=== PATIENT | male | born 1960 | race Caucasian/White ===

== ENCOUNTER → 2017-12-27 06:53 | Outpatient (CLI) | payer OTHER, SELFPAY ==
--- NOTE | 2017-12-27 | DI.RAD.S_ITS ---
PROCEDURE: XR KUB INDICATIONS: KIDNEY STONES TECHNIQUE: One view of the abdomen acquired. COMPARISON: [facility], CT, IVP (ABD & PEL WWO CONTRAST), 04/10/2017, 13:57. Dictated by: Cinthia Rizzo M.D. on 12/27/2017 at 8:14 Approved by: Cinthia Rizzo M.D. on 12/27/2017 at 8:16
== END ==
PROVIDERS: PCP Family Medicine; Visit Provider Specialist
DX: N20.0 Calculus of kidney (principal)
CPT/HCPCS: 74018

== ENCOUNTER → 2018-10-24 12:40 | Outpatient (ROUT) | payer OTHER, SELFPAY | PROVIDERS: PCP Family Medicine; Visit Provider Family Medicine | DX: N39.0 Urinary tract infection, site not specified (principal) | CPT/HCPCS: 87077; 87086; 87186 ==

== ENCOUNTER → 2019-01-01 09:06 | Outpatient (CLI) | payer OTHER, SELFPAY ==
--- NOTE | 2019-01-01 | DI.RAD.S_ITS ---
PROCEDURE: XR KUB INDICATIONS: KIDNEY STONES TECHNIQUE: One view of the abdomen acquired. COMPARISON: [facility], , XR KUB, 12/27/2017, 6:45. FINDINGS: Surgical changes and devices: Numerous pelvic surgical clips. Bowel: Bowel gas pattern is normal. Soft tissues: No suspicious abdominal calcifications. Previously described punctate left upper quadrant calcification is less conspicuous Visualized solid organ contours appear normal in size. Chronic deformity of the right femoral head and neck, with decreased femoral head step-off. Bones: No suspicious bony lesions. IMPRESSION: No definite radiographically visible nephrolithiasis. If clinically warranted, further assessment with CT KUB could be considered. Dictated by: Eleazar Parker M.D. on 01/01/2019 at 12:41 Approved by: Eleazar Parker M.D. on 01/01/2019 at 12:43
[2019-01-01 11:48] LABS: Prostate Specific Antigen < 0.064 ng/mL (0.10-4.00)
== END ==
PROVIDERS: PCP Family Medicine; Visit Provider Specialist
DX: C61 Malignant neoplasm of prostate (principal); N20.0 Calculus of kidney
CPT/HCPCS: 36415; 74018; 84153

== ENCOUNTER → 2020-10-05 07:06 | Outpatient (CLI) | payer OTHER, SELFPAY ==
--- NOTE | 2020-10-05 07:08 | DI.RAD.S_ITS ---
PROCEDURE: XR KUB INDICATIONS: Kidney stones TECHNIQUE: One view of the abdomen acquired. COMPARISON: [facility], CT, IVP (ABD & PEL WWO CONTRAST), 04/10/2017, 13:57. [facility], CR, XR KUB, 12/27/2017, 6:45[facility], CR, XR KUB, 01/01/2019, 9:16. FINDINGS: There is a 2 cm ovoid density projecting over the right renal pelvis. Upper poles of both renal shadows are obscured by bowel gas. Underlying osseous structures are appropriately mineralized without fracture. Multiple surgical clips noted in the pelvis, stable from the prior. IMPRESSION: 1. Ovoid 2 cm density projecting over the right renal pelvis most likely represents fecal debris, although, a renal stone would be difficult to exclude. 2. Nonobstructive bowel gas pattern. 3. Surgical clips in the pelvis Dictated by: Vincent Andujar M.D. on 10/05/2020 at 11:51 Approved by: Vincent Andujar M.D. on 10/05/2020 at 12:19
[2020-10-05 08:55] LABS: Prostate Specific Antigen < 0.064 ng/mL (0.10-4.00)
== END ==
PROVIDERS: PCP Family Medicine; Referring Provider Specialist; Visit Provider Specialist
DX: N20.0 Calculus of kidney (principal); R97.20 Elevated prostate specific antigen [PSA]
CPT/HCPCS: 36415; 74018; 84153

== ENCOUNTER → 2021-10-05 06:52 | Outpatient (CLI) | payer OTHER, SELFPAY ==
--- NOTE | 2021-10-05 07:13 | DI.RAD.S_ITS ---
PROCEDURE: XR KUB INDICATIONS: possible kidney calculus TECHNIQUE: One view of the abdomen acquired. COMPARISON: [facility], CR, XR KUB, 01/01/2019, 9:16. [facility], CR, XR KUB, 12/27/2017, 6:45. CR, KUB XRAY (1 VIEW ABDOMEN), 08/02/2017, 6:43. [facility], CR, KUB XRAY (1 VIEW ABDOMEN), 05/03/2017, 7:55. [facility], CR, XR KUB, 10/05/2020, 7:10. FINDINGS: Surgical changes and devices: Multiple surgical clips in the lower pelvis are stable compared to prior exams.. Bowel: Bowel gas pattern is normal. Soft tissues: No suspicious abdominal calcifications. Visualized solid organ contours appear normal in size. Bones: No suspicious bony lesions. IMPRESSION: No renal stone identified by plain film radiograph. If there is continued clinical concern for nephrolithiasis, consider CT imaging for additional evaluation. Dictated by: Charis Quarles MD, PhD on 10/05/2021 at 9:39 Approved by: Charis Quarles MD, PhD on 10/05/2021 at 9:43
[2021-10-05 09:02] LABS: Prostate Specific Antigen < 0.064 ng/mL (0.10-4.00)
== END ==
PROVIDERS: PCP Family Medicine; Referring Provider Specialist; Visit Provider Specialist
DX: R97.20 Elevated prostate specific antigen [PSA] (principal); N20.0 Calculus of kidney
CPT/HCPCS: 36415; 74018; 84153

== ENCOUNTER → 2022-03-27 11:37 | Outpatient (CLI) | payer OTHER, SELFPAY ==
[2022-03-27 14:15] LABS: COVID19 -Nasal RAPID Negative (Negative)
== END ==
PROVIDERS: PCP Family Medicine; Visit Provider Surgery
DX: Z20.822 Contact with and (suspected) exposure to COVID-19 (principal); Z01.812 Encounter for preprocedural laboratory examination
CPT/HCPCS: 87635; C9803

== ENCOUNTER 2022-03-28 08:27 | Day surgery (SDC) | payer OTHER, SELFPAY ==
--- NOTE | 2022-03-28 | PATH_ITS ---
[facility] Accession Number: [id number] . 01 Material submitted: . PART A: colon - ASCENDING COLON POLYP PART B: colon - SPLENIC FLEXURE POLYP . 01 Diagnosis: A. Ascending Colon, Polyp, Biopsy: Tubular adenoma. . B. Splenic Flexure, Polyp, Biopsy: Colonic mucosa with no diagnostic abnormality, consistent with polypoid redundancy. Additional levels were examined. Negative for dysplasia and malignancy. MRV 04/02/2022 1526 Local . 01 Electronically signed: . Nanci Oreilly MD, Pathologist NPI- [id number] . 01 Gross description: . Part A: ASCENDING COLON POLYP: Received in formalin is 1 fragment(s) of meeks, soft tissue measuring 1.4 x 0.3 x 0.2 cm submitted entirely in 1 cassette(s) Part B: SPLENIC FLEXURE POLYP: Received in formalin is 1 fragment(s) of meeks, soft tissue measuring 0.5 x 0.5 x 0.1 cm submitted entirely in 1 cassette(s) /NOAH 04/01/2022 1858 Local . 01 Pathologist provided ICD-10: D12.2 . 01 CPT . 138474, [id number] Specimen Comment: A courtesy copy of this report has been sent to [phone] Performed at: 01 [facility] [address] [place] [address] [address], [place], [place] [id number] MD Fritz Trotter MD Phone: [phone]
[2022-03-28 09:40] VITALS: BP 137/71; PULSE 71; RESP 16; TEMP 36.6; O2SAT 99; BMI 27.5
[2022-03-28] MEDS: LACTATED RINGERS 1,000 ML 42 ML IV (09:54)
--- NOTE | 2022-03-28 10:27 | PM.HP.1 ---
History of Present Illness History of Present Illness Date Patient Seen: 03/28/22 Time Patient Seen: 10:27 Chief complaint: SDC Narrative: [place] is a 62-year-old man who is here for colonoscopy. He has had 2 colonoscopies in the past both of which had no polyps. He has no known family history of colon cancer. He was diagnosed with prostate cancer and underwent a radical prostatectomy several years ago. Patient History Medical History History of malignant neoplasm of prostate History of nephrolithiasis Family & Social History Tobacco & Substance use: Smoking Status Never smoker alcohol intake frequency a few times a week Substance Use Type does not use Meds Home Medications and Allergies Home Medications Medication Instructions Recorded Confirmed Type sodium sul 1.479 gram-potas ch See Rx Instructions PO PER PKG DIR 03/07/22 Rx 0.188 gram-magnes sul 0.225 gram #24 tabs tablet (Sutab) lisinopril 10 20 - 25 tab PO DAILY 03/28/22 03/28/22 History mg-hydrochlorothiazide 12.5 mg tablet Allergies Allergy/AdvReac Type Severity Reaction Status Date / Time From COMPAZINE Allergy Severe Muscle Pain Uncoded 03/28/22 09:36 Exam Vital Signs (past 8 hours): - 03/28/22 09:40 Temperature 97.9 F Pulse Rate 71 Respiratory Rate 16 Blood Pressure 137/71 Pulse Oximetry 99 Oxygen Delivery Method Room Air Oxygen Delivery Method Room Air Const General: healthy appearing Resp Effort & Inspection: normal respiratory effort Assessment & Plan Assessment and plan (1) Colon cancer screening: Status: Acute Plan 62-year-old man due for colon cancer screening. We we reviewed the risks and benefits of colonoscopy and he would like to proceed. Time Spent With Patient Critical Care time: I spent a total of [] minutes of critical care time on this patient's care today; this time is exclusive of procedural time.
[2022-03-28] MEDS: MIDAZOLAM 5 MG/5 ML VIAL IV (10:45)
[2022-03-28] MEDS: fentaNYL 100 MCG/2 ML INJ 150 MCG IV (11:00)
--- NOTE | 2022-03-28 11:07 | P.OP.COLON_ITS ---
Operative Date/Time/Diagnoses Date of procedure: 03/28/22 Time of procedure: 11:07 Pre-op diagnosis: Colon cancer screening Procedure & Clinicians Study performed: Colonoscopy Surgeon: Durga Babin Procedure Notes Procedure in detail: Surgeon: Durga Babin MD Procedure: The patient was brought to the endoscopy suite, placed in left late ral decubitus position. The patient was connected to monitoring devices. A time-out was performed. Sedation was administered. Once the patient was adequately sedated, a digital rectal exam was performed and was normal. The scope was then inserted and advanced to the cecum where the appendiceal orifice was identified and photographed. The scope was then slowly withdrawn over greater than 6 minutes. The mucosa was thoroughly inspected. There was a 5 mm polyp in the ascending colon removed with a cold snare. There was a 5 mm polyp in the splenic flexure removed with cold snare. The scope was retroflexed in the rectum. No other abnormalities were noted. The scope was straightened and removed. The patient was awakened and brought to recovery. Versed: 5 mg Fentanyl: 150 mcg EBL: 5 mL Findings: 5 mm polyps in the ascending and splenic flexure Scope withdrawal time: 13 Sedation minutes: 25 Post-procedure Recommendations: Will call with biopsy results Disposition: PACU
[2022-03-28 11:12] VITALS: BP 138/75; PULSE 71; RESP 11; TEMP 37.2; O2SAT 99
[2022-03-28 11:17] VITALS: BP 128/78; PULSE 71; RESP 15; O2SAT 100
[2022-03-28 11:22] VITALS: BP 132/75; PULSE 66; RESP 14; TEMP 36.9; O2SAT 99
[2022-03-28 11:46] VITALS: BP 125/71; PULSE 66; RESP 12; TEMP 36.8; O2SAT 99
== END 2022-03-28 11:27 | disposition home or self-care (01) ==
PROVIDERS: PCP Family Medicine; Referring Provider Surgery; Visit Provider Surgery
PROC: 0DJD8ZZ Inspection of Lower Intestinal Tract, Via Natural or Artificial Opening Endoscopic (ICD-10-PCS; CPT 45378; principal; 2022-03-28 10:00)
DX: Z12.11 Encounter for screening for malignant neoplasm of colon (principal); D12.2 Benign neoplasm of ascending colon
CPT/HCPCS: 45385; 99152; 99153; J2250; J3010

== ENCOUNTER → 2023-08-08 09:55 | Outpatient (CLI) | payer MEDICARE, SELFPAY ==
--- NOTE | 2023-08-08 09:59 | DI.RAD.S_ITS ---
PROCEDURE: XR ANKLE RT MIN 3V INDICATIONS: RIGHT ANKLE PAIN TECHNIQUE: 3 views of the ankle were acquired. COMPARISON: [facility], , ANKLE 3 VIEWS RIGHT, 11/15/2011, 7:05. FINDINGS: Bones: No fractures or dislocations. Ankle mortise is normally aligned. No suspicious bony lesions. Mild plantar and posterior calcaneal enthesophytes. Mild degenerative changes of the tibiotalar joint. Soft tissues: No tibiotalar joint effusion. Achilles tendon appears normal. Soft tissue swelling, most pronounced over the lateral malleolus. IMPRESSION: No acute osseous abnormality. If pain persists with conservative management, consider repeat x-ray in 10-14 days or cross-sectional imaging. Dictated by: Abel Barrera M.D. on 08/08/2023 at 10:37 Approved by: Abel Barrera M.D. on 08/08/2023 at 10:37
== END ==
PROVIDERS: PCP Family Medicine; Referring Provider Family Medicine; Visit Provider Family Medicine
DX: M25.571 Pain in right ankle and joints of right foot (principal); M79.89 Other specified soft tissue disorders
CPT/HCPCS: 73610

== ENCOUNTER → 2023-08-11 | Outpatient (CLI) | payer MEDICARE, SELFPAY ==
--- NOTE | 2023-08-11 07:15 | DI.MRI.S_ITS ---
PROCEDURE: MR ANKLE RT WO CON INDICATIONS: Pain in right ankle and joints of right foot TECHNIQUE: Noncontrast sagittal T1 spin echo and T2 fast spin echo with fat saturation, axial proton density fast spin echo and T2 fast spin echo with fat saturation, coronal T1 spin echo and T2 fast spin echo with fat saturation through the ankle/hindfoot. COMPARISON: [facility], CR, XR ANKLE RT MIN 3V, 08/08/2023, 9:58. FINDINGS: Image quality: Diagnostic Bones and Joints: Tibiotalar joint: [id number] joint effusion and degenerative changes. There are areas of subchondral edema. Postsurgical changes at the lateral malleolus. More focal edema is seen at the medial malleolus. Midfoot and hindfoot: No acute fracture. Mild scattered degenerative changes. There is a trace subtalar joint effusion Talar dome: Subchondral edema and focal cystic change at the medial talar dome. Medial Structures: Flexor tendons: Suspected partial tear moderate tendinopathy at the posterior tibialis insertion. Tenosynovitis also seen in the hallucis and digitorum tendons in the mid aspect and plantar aspect. Deltoid ligaments: Multifocal apoq-lp-xamglyxb signal abnormalities in the deep and superficial fibers Spring complex: Qroj-oc-wlgscvgd signal abnormality extends into the spring complex Sinus tarsi: Preserved fat signal. Lateral Structures: Ligaments: Suspected partial tear of the anterior talofibular ligament. There is also edema surrounding the posterior tibial fibular and calcaneal fibular ligament. Syndesmosis: Ill-defined signal, but without significant edema. Peroneus tendons: Mild tendinosis Anterior Structures: Extensor tendons: Intact. Plantar and Posterior Structures: Achilles: Intact. There is calcaneal enthesopathy. Plantar fascia: Plantar enthesopathy, without acute edema currently Muscles: No pathologic edema. Other soft tissues: Mild diffuse subcutaneous edema IMPRESSION: Suspected contusion or nondisplaced fracture related edema in the medial malleolus with partial tearing and sprain of the deltoid and spring ligament complex. Suspected tendinopathy and partial tear also seen at the posterior tibialis insertion. Tenosynovitis of the other flexor tendons. Partial tear of the anterior talofibular ligament and edema/brain of the other lateral ligaments. Postsurgical changes at the lateral malleolus. Ill-defined signal abnormality of the syndesmosis may be related to postsurgical changes and prior trauma with scarring. No significant acute edema on this study. Plvi-sd-mmyrblnd tibiotalar and mild scattered midfoot and hindfoot degenerative changes. Tibiotalar joint effusion is present. Focal cystic changes seen in the medial talar dome. Plantar calcaneal enthesopathy, without acute edema. Mild tendinosis of the peroneal tendons. Dictated by: Ck Cain M.D. on 08/11/2023 at 12:50 Approved by: Ck Cain M.D. on 08/11/2023 at 13:03
== END ==
LOC: MRI 07:14
PROVIDERS: PCP Family Medicine; Referring Provider Family Medicine; Visit Provider Family Medicine
DX: S93.491A Sprain of other ligament of right ankle, initial encounter (principal); M25.471 Effusion, right ankle; M25.571 Pain in right ankle and joints of right foot; M65.871 Other synovitis and tenosynovitis, right ankle and foot; M77.31 Calcaneal spur, right foot; R60.0 Localized edema; Z87.81 Personal history of (healed) traumatic fracture
CPT/HCPCS: 73721

== ENCOUNTER → 2024-07-14 06:46 | Outpatient (CLI) | payer MEDICARE, SELFPAY ==
--- NOTE | 2024-07-14 06:47 | DI.US.S_ITS ---
PROCEDURE: US ABDOMEN COMPLETE INDICATIONS: PRIMARY HTN/ELEVATED BILIRUBIN/AAA SCREENING TECHNIQUE: Real-time scanning was performed of the abdominal and retroperitoneal organs, with image documentation. COMPARISON: [facility], US, ABDOMEN COMPLETE, 01/19/2016, 11:02. FINDINGS: Liver: Measures 15 cm. Increased in echogenicity. Small hypoechoic cysts. Left liver measuring 1.4 cm. Right liver measuring 1.6 cm. Gallbladder: Nondilated. Mobile gallstone measuring 2 cm. Normal gallbladder wall thickness. No pericholecystic fluid. Negative sonographic Calderon's sign. Biliary ducts: Not well seen. Pancreas: Not well seen due to overlying bowel gas. Spleen: Spleen is normal in size and homogeneous in echotexture. Measures 10.1 cm. Kidneys: Kidneys are normal in size and echotexture. Right kidney measures 11.2 cm long; left kidney measures 12.2 cm long. No hydronephrosis or nephrolithiasis. No solid masses. Aorta: Visualized aorta is normal in caliber at less than 3 cm. Proximal aorta is not seen. Iliacs: Proximal common iliac arteries are normal in caliber at less than 2.5 cm. IVC: Not well seen. Miscellaneous: No free abdominal fluid. IMPRESSION: 1. Increased hepatic echogenicity most consistent with hepatic steatosis. Other forms of hepatocellular disease could have similar appearance. 2. No acute cholecystitis. Mobile gallstone measuring 2 cm. 3. Pancreas and bile ducts are not well seen. 4. No hydronephrosis. Dictated by: Adilson Ash M.D. on 07/15/2024 at 18:33 Approved by: Adilson Ash M.D. on 07/15/2024 at 18:39
== END ==
PROVIDERS: PCP Family Medicine; Referring Provider Family Medicine; Visit Provider Family Medicine
DX: K80.20 Calculus of gallbladder without cholecystitis without obstruction; K76.89 Other specified diseases of liver; I10 Essential (primary) hypertension; R17 Unspecified jaundice
CPT/HCPCS: 76700

== ENCOUNTER → 2025-03-12 07:54 | Outpatient (CLI) | payer MEDICARE, SELFPAY ==
--- NOTE | 2025-03-12 07:57 | DI.RAD.S_ITS ---
PROCEDURE: XR SHOULDER LT MIN 2V INDICATIONS: LT SHOULDER PAIN TECHNIQUE: Three views of the shoulder were acquired. COMPARISON: None. FINDINGS: Bones: Normal mineralization. No acute fracture, dislocation, or separation. Tiny osseous fragment inferior to the glenoid appears dystrophic rather than avulsion fracture. The visible ribs are intact. Soft tissues: No suspicious soft tissue calcifications. IMPRESSION: Small soft tissue calcification inferior to the glenoid, likely intra-articular, may be a loose body or indicate calcific tendinitis of subscapularis. Dictated by: Moira Vasquez M.D. on 03/12/2025 at 20:30 Approved by: Moira Vasquez M.D. on 03/12/2025 at 20:32
== END ==
PROVIDERS: PCP Family Medicine; Referring Provider Family Medicine; Visit Provider Family Medicine
DX: M25.512 Pain in left shoulder (principal)
CPT/HCPCS: 73030

== ENCOUNTER → 2025-04-13 07:23 | Outpatient (CLI) | payer MEDICARE, SELFPAY ==
--- NOTE | 2025-04-13 07:24 | DI.MRI.S_ITS ---
PROCEDURE: MR SHOULDER LT WO CON
== END ==
LOC: MRI 07:24
PROVIDERS: PCP Family Medicine; Referring Provider Physician Assistant Surgical; Visit Provider Physician Assistant Surgical
DX: M75.112 Incomplete rotator cuff tear or rupture of left shoulder, not specified as traumatic (principal); S46.112A Strain of muscle, fascia and tendon of long head of biceps, left arm, initial encounter; M75.82 Other shoulder lesions, left shoulder; M19.012 Primary osteoarthritis, left shoulder
CPT/HCPCS: 73221